=== PATIENT | female | born 1955 | race Caucasian/White ===

== ENCOUNTER → 2016-11-09 | Outpatient (CLI) | payer BC ==
[~2016-11-09] MED LIST: CARAFATE1 GM PO; PEPCID20 MG PO; PREMARIN0.45 MG PO; PRILOSEC20 MG PO
== END | disposition disaster alternative care site (69) ==
LOC: GRAD 07:55
DX: R14.0 Abdominal distension (gaseous) (principal); R14.1 Gas pain; G43.109 Migraine with aura, not intractable, without status migrainosus; R11.0 Nausea